=== PATIENT | male | born 1990 | race Two or more races ===

== ENCOUNTER 2020-02-03 07:59 | Emergency (ER) | payer MEDICAID, SELFPAY ==
[2020-02-03 08:02] VITALS: BP 165/119; PULSE 69; RESP 15; TEMP 36.7; O2SAT 99; BMI 38.8
--- NOTE | 2020-02-03 08:10 | CT_ITS ---
PROCEDURE: CT HEAD/BRAIN WO CON CLINICAL INDICATION: Dizziness Dizziness, left arm numbness COMPARISON: No exams were available for comparison TECHNIQUE: Axial images obtained. All CT scans at the facility use one or more dose reduction, viz: automated exposure control, ma/kV adjustment per patient size (including targeted exams where dose is matched to indication, i.e. head), or iterative reconstruction technique. FINDINGS: No midline shift, mass effect, intracranial hemorrhage, hydrocephalus, or extra-axial fluid collection is evident. There is a anmol cisterna magna the calvarium has an unremarkable appearance. No mastoid effusion. No sinus air-fluid level. IMPRESSION: 1. No acute intracranial findings. 2. Anmol cisterna magna as normal variant Dictated by: Jose Monique MD 02/03/2020 08:31 Electronically signed by Jose Monique MD in [facility] 02/03/2020 08:31
--- NOTE | 2020-02-03 08:13 | XR_ITS ---
PROCEDURE: XR CHEST 2V CLINICAL HISTORY: dizzyness COMPARISON: No exams were available for comparison FINDINGS: The cardiomediastinal silhouette and pulmonary vascularity are within normal limits. The lungs are clear without infiltrates, suspicious nodules, or pleural effusions. No acute bony abnormalities. IMPRESSION: No acute findings. Dictated by: Jose Monique MD 02/03/2020 08:45 Electronically signed by Jose Monique MD in [facility] 02/03/2020 08:45
--- NOTE | 2020-02-03 08:13 | [facility].EDGENADL ---
ED Disposition Clinical Impression: Dizziness Disposition: Home, Self-Care Condition on Discharge: Good Instructions: Vertigo Additional Instructions: After reviewing your labs and radiology no significant abnormalities were noted. I recommend that you follow-up with your primary care physician within the next week, and schedule future appointments with a marketing copywriter given your family history of cardiac disease. Should your symptoms worsen, please return to the emergency department for further evaluation. Referrals: Provider,Referral, [Primary Care Provider] - - Critical Care Critical Care Time: No Attestation: On , the high probability of a clinically significant, sudden or life threatening deterioration of the following system(s) required my full and direct attention, intervention and personal management. The time I documented below is in addition to time spent performing reported procedures but includes the following listed in this critical care notation. Medical Decision Making - Chris Inquiry Pt receiving controlled substance: No Chris was queried for this patient: No Vital Signs: 02/03/20 08:02 02/03/20 09:10 02/03/20 10:24 Temperature 98.1 F Temperature Source Oral Pulse Rate Pulse Rate [Right] 69 61 61 Respiratory Rate 15 20 18 Blood Pressure Blood Pressure [Right Arm] 165/119 H 134/91 H 135/88 Blood Pressure Mean [Right Arm] 134 105 103 Blood Pressure Source [Right Arm] Automatic Cuff Automatic Cuff Blood Pressure Position [Right Arm] Sitting Sitting 02 Sat by Pulse Oximetry 99 96 100 Oxygen Delivery Method Room Air Room Air 02/03/20 11:07 02/03/20 11:24 Temperature 98.2 F Temperature Source Pulse Rate 76 Pulse Rate [Right] 76 Respiratory Rate 20 18 Blood Pressure 133/98 H Blood Pressure [Right Arm] 133/98 H Blood Pressure Mean [Right Arm] 109 Blood Pressure Source [Right Arm] Automatic Cuff Blood Pressure Position [Right Arm] Supine 02 Sat by Pulse Oximetry 100 Oxygen Delivery Method Room Air - Lab Data Lab Results 02/03/20 08:20: WBC 6.3, RBC 4.95, Hgb 15.6, Hct 45.6, MCV 92.1, MCH 31.5 H, MCHC 34.2, RDW 13.5, Plt Count 263, MPV 8.6, Neut % (Auto) 52.0, Lymph % (Auto) 38.7, [place] % (Auto) 5.5, Eos % (Auto) 3.0, Baso % (Auto) 0.8, Neut # (Auto) 3.3, Lymph # (Auto) 2.4, [place] # (Auto) 0.3, Eos # (Auto) 0.2, Baso # (Auto) 0.1 02/03/20 08:20: Sodium 138, Potassium 4.3, Chloride 106, Carbon Dioxide 27, Anion Gap 9.3, BUN 13, Creatinine 0.80, Estimated Creat Clear 304 H, Estimated GFR 115, Est GFR ( Amer) 139, Glucose 106 H, Calcium 9.0, Total Bilirubin 0.4, AST 54, ALT 105 H, Alkaline Phosphatase 59, Troponin I < 0.01, Total Protein 7.2, Albumin 4.3, Globulin 2.9, Albumin/Globulin Ratio 1.5 02/03/20 08:40: Urine Color Yellow, Urine Appearance Clear, Urine pH 6.5, Ur Specific [place] 1.010, Urine Protein Negative, Urine Glucose (UA) Negative, Urine Ketones Negative, Urine Blood Negative, Urine Nitrate Negative, Urine Bilirubin Negative, Urine Urobilinogen 0.2, Ur Leukocyte Esterase Negative, Urine RBC Occasional, Urine WBC 3-5, Ur Squamous Epith Cells Occasional, Urine Bacteria None 02/03/20 10:11: Troponin I < 0.01 Result diagrams: 02/03/20 08:20 02/03/20 08:20 - EDE Score for Non-Stemi Age of Patient: <30 years old Heart Rate: 50-69 bpm Systolic Blood Pressure: 160-199 mmHg CHF [place] Class: I-No CHF Other Risk Factors: None Medical Decision Narrative: In summary patient is a well-appearing 29-year-old male with no significant past medical history, presenting to the emergency department for evaluation of dizziness, elevated blood pressure, and left arm pain. She is vital signs significant for elevated blood pressure with a systolic of 170, and diastolic of 119. Rest of patient's physical exam within normal limits. Torrential diagnosis includes but is not limited to hypertensive urgency, hypertensive emergency, ACS, pneumonia. Given this ordered
--- NOTE | 2020-02-03 08:19 | ECG_ITS ---
APPROVED REPORT Exam: Resting ECG HR:58 bpm ECG Measurements Heart Rate 58 AXES LA 156 P 66 QRSd 104 QRS 70 QT 394 T 42 QTc 386 <Conclusion> Sinus bradycardia with sinus arrhythmia ST elevation, consider early repolarization, pericarditis Abnormal ECG Electronically signed by : Rishi Levine, 02/03/2020 11:09:29
--- NOTE | 2020-02-03 08:28 | PC.NURSE ---
Addendum entered by Laura Spain RN 02/03/20 08:30: Time change 0815 Original Note: Pt to rad
--- NOTE | 2020-02-03 08:30 | PC.NURSE ---
Pt returned from rad
[2020-02-03 08:31] LABS: Basophils # 0.1 K/mm3 (0-0.2); Basophils % 0.8 % (0.1-2.0); Eosinophils # 0.2 K/mm3 (0.0-0.4); Hematocrit 45.6 % (42.0-52.0); Hemoglobin 15.6 g/dL (14.1-18.0); Lymphocytes # 2.4 K/mm3 (0.7-4.5); Lymphocytes % 38.7 % (10-50); Mean Corpuscular HGB Conc 34.2 g/dL (31.8-35.4); Mean Corpuscular Hemoglobin 31.5 pg (27.0-31.2); Mean Corpuscular Volume 92.1 fl (80-94); Mean Platelet Volume 8.6 fl (7.4-10.4); Monocytes # 0.3 K/mm3 (0.1-1.0); Monocytes % 5.5 % (1.7-9.3); Neutrophils # 3.3 K/mm3 (1.8-7.8); Platelet Count 263 K/mm3 (142-424); Red Blood Count 4.95 M/mm3 (4.60-6.20); Red Cell Distribution Width 13.5 % (11.5-17.5); White Blood Count 6.3 K/mm3 (4.8-10.8)
[2020-02-03 08:36] LABS: Chloride 106 mmol/L (98-107); Potassium 4.3 mmoL/L (3.5-5.1); Sodium 138 mmol/L (136-145)
[2020-02-03 08:39] LABS: Alanine Aminotransferase 105 U/L (12-78); Albumin Level 4.3 g/dl (3.5-5.0); Albumin/Globulin Ratio 1.5 (1.1-1.8); Alkaline Phosphatase 59 U/L (38-126); Anion Gap 9.3 mEq/L (5-15); Aspartate Amino Transferase 54 U/L (17-59); Bilirubin,Total 0.4 mg/dl (0.2-1.3); Blood Urea Nitrogen 13 mg/dl (9-20); Carbon Dioxide 27 mmol/L (22.0-30.0); Creatinine Clearance Estimated 304 mL/min (50-200); Estimated Glomerular Filt Rate 115 ml/min (>60); GFR (African American) 139 ML/MIN (>60); Globulin 2.9 g/dL (1.3-3.2); Total Protein,Serum 7.2 g/dl (6.3-8.2)
[2020-02-03 08:40] LABS: Glucose 106 mg/dl (74-100)
[2020-02-03 08:44] LABS: Microscopic, Urine URINE MICROSCOPIC (MICROSCOPIC)
[2020-02-03 08:45] LABS: Appearance,Urine CLEAR (Clear); Bilirubin,Urine Negative (Negative); Blood, Urine Negative (Negative); Color,Urine YELLOW (Yellow); Glucose,Urine (UA) Negative (Negative); Ketones,Urine Negative (Negative); Leukocyte Esterase,Urine Negative (Negative); Nitrate,Urine Negative (Negative); PH,Urine 6.5 (5.0-8.5); Protein,Urine Negative (Negative); Urobilinogen,Urine 0.2 EU/dl (0.2)
[2020-02-03 08:56] LABS: Troponin I < 0.01 ng/ml (0.00-0.034)
[2020-02-03 08:58] LABS: RBC,Urine Occasional #/hpf (0-3); Squamous Epithelial Cell,Urine Occasional #/hpf (0-5)
[2020-02-03 09:10] VITALS: BP 134/91; PULSE 61; RESP 20; O2SAT 96
--- NOTE | 2020-02-03 10:09 | ECG_ITS ---
APPROVED REPORT Exam: Resting ECG HR:62 bpm ECG Measurements Heart Rate 62 AXES IN 154 P 47 QRSd 104 QRS 76 QT 396 T 68 QTc 401 <Conclusion> Normal sinus rhythm Normal ECG Electronically signed by : Rishi Levine, 02/04/2020 13:23:30
[2020-02-03 10:24] VITALS: BP 135/88; PULSE 61; RESP 18; O2SAT 100
[2020-02-03 10:51] LABS: Troponin I < 0.01 ng/ml (0.00-0.034)
[2020-02-03 11:07] VITALS: BP 133/98; PULSE 76; RESP 20; O2SAT 100
[2020-02-03 11:24] VITALS: BP 133/98; PULSE 76; RESP 18; TEMP 36.8; O2SAT 100
== END 2020-02-03 11:35 | disposition home or self-care (01) ==
PROVIDERS: Emergency Provider Emergency Medicine
DX: R42 Dizziness and giddiness (principal); R03.0 Elevated blood-pressure reading, without diagnosis of hypertension
CPT/HCPCS: 70450; 71046; 80053; 81001; 84484; 85025; 93005; 99284